=== PATIENT | female | born 1980 | race Caucasian/White ===

== ENCOUNTER 2019-03-09 09:04 | Day surgery (SDC) | payer OTHER ==
[2019-03-09] MEDS ORDERED: Tylenol #3 PO (12:12)
[2019-03-09] MEDS ORDERED: DOXYCYCLINE HY100 M3 PO (12:12)
== END 2019-03-09 15:55 | disposition home or self-care (01) ==
LOC: CIR.AMB 09:04
DX: N84.0 Polyp of corpus uteri (principal); D25.0 Submucous leiomyoma of uterus